=== PATIENT | male | born 1960 | race Caucasian/White ===

== ENCOUNTER 2018-08-25 08:48 | Emergency (ER) | payer BC ==
[2018-08-25 09:04] VITALS: BP 164/85; PULSE 74; TEMP 98.2; BMI 26.0
--- NOTE | 2018-08-25 09:50 | PDOC ---
History of Present Illness - General Chief Complaint: Pain Stated Complaint: LT LEG PAIN Time Seen by Provider: 08/25/18 09:33 History Source: Patient Exam Limitations: Clinical Condition - History of Present Illness Initial Comments: 08/25/18 09:53 Patient with no significant past medical history present with complaint of pain to left calf muscle for 2 days which has been worsening radiating down to left foot. Patient reports he gets this symptoms every time the weather is cold but not this severe. Patient also reported tingling sensation and left foot. Patient denies shortness of breath, chest pain, dizziness, problem with ambulation, redness to skin area. Patient denies any other symptoms Timing/Duration: other (2 days) Past History - Past Medical History Allergies/Adverse Reactions: Allergies Allergy/AdvReac Type Severity Reaction Status Date / Time No Known Allergies Allergy Verified 08/25/18 08:59 Home Medications: Ambulatory Orders Methocarbamol [Robaxin -] 500 mg PO BID #14 tablet 08/25/18 Naproxen 500 mg PO BID PRN #20 tablet 08/25/18 COPD: No HTN: Yes (untreated) - Surgical History Abdominal Surgery: Yes (hernia) - Suicide/Smoking/Psychosocial Hx Smoking History: Current every day smoker Have you smoked in the past 12 months: Yes Number of Cigarettes Smoked Daily: 5 Information on smoking cessation initiated: No Hx Alcohol Use: Yes (social) Drug/Substance Use Hx: No Substance Use Type: None Review of Systems - Review of Systems Able to Perform ROS?: Yes Is the patient limited [place] proficient: No Constitutional: No: See HPI, Fever, Weakness Respiratory: No: Symptoms reported, See HPI, Cough, Orthopnea, Shortness of Breath, SOB with Exertion, SOB at Rest, Stridor, Wheezing, Productive cough, Hemoptysis, Other Cardiac (ROS): No: Symptoms Reported, See HPI, Chest Pain, Edema, Irregular Heart Rate, Lightheadedness, Palpitations, Syncope, Chest Tightness, Other ABD/GI: No: Symptoms Reported, See HPI, Abdominal Distended, Abd. Pain w/ defecation, Blood Streaked Bowels, Constipated, Diarrhea, Difficulty Swallowing , Nausea, Poor Appetite, Poor Fluid Intake, Rectal Bleeding, Vomiting, Indigestion, Abdominal cramping, Tarry Stools, Other Musculoskeletal: Yes: Muscle Pain (left calf). No: Joint Pain, Joint Swelling, Muscle Weakness, Joint Stiffness Integumentary: No: Symptoms Reported, See HPI, Bruising, Change in Color, Change in Hair/Nails, Dryness, Erythema, Flushing, Lesions, Lumps, Pallor, Pruritus, Rash, Sweating, Other Neurological: Yes: Tingling (left foot). No: Numbness, Paresthesia, Weakness, Unsteady Gait All Other Systems: Reviewed and Negative *Physical Exam - Vital Signs Last Vital Signs Temp Pulse Resp BP Pulse Ox 98.2 F 74 18 164/85 99 08/25/18 08:59 08/25/18 08:59 08/25/18 08:59 08/25/18 08:59 08/25/18 08:59 - Physical Exam Comments: 08/25/18 09:55 GENERAL: Well developed, well nourished. Awake and alert. No acute distress. CARDIOVASCULAR: Regular rate and rhythm. No murmurs, rubs, or gallops. PULMONARY: No evidence of respiratory distress. Lungs clear to auscultation bilaterally. No wheezing, rales or rhonchi. ABDOMINAL: Soft. Non-tender. Non-distended. No rebound or guarding. No organomegaly. Normoactive bowel sounds MUSCULOSKELETAL : moderate tenderness over posterior left calf muscle. no increase warmth or redness to skin. negative horman's sign to left LE. No bony deformities EXTREMITIES: No cyanosis. No clubbing. No edema. moderate calf tenderness. SKIN: Warm and dry. Normal capillary refill. No rashes. No jaundice. NEUROLOGICAL: Alert, awake, appropriate. No motor deficits in the lower extremities. Gait is normal without ataxia. PSYCHIATRIC: Cooperative. Good eye contact. Appropriate mood and affect. General Appearance: Yes: Nourished, Appropriately Dressed. No: Apparent Distress Moderate Sedation - Procedure Monitoring Vital Signs: Procedure Monitoring Vital Signs Temperature 98.2 F 08/25/18 08:59 Pulse Rate 74 08/25/18 08:59 Respiratory Rate 18 08/25/18 08:59 Blood Pressure 164/85 08/25/18 08:59 O2 Sat by Pulse Oximetry (%) 99 08/25/18 08:59 ED Treatment Course - RADIOLOGY Radiology Studies Ordered: Category Date Time Status DUPLEX VASCUL US-1 LEG [US] Stat Ultrasound 08/25/18 09:47 Ordered Medical Decision Making - Medical Decision Making 08/25/18 09:57 Patient with no significant past medical history presenting with complaint of pain to left calf muscle to which has been worse in the past 2 days. Patient reports similar episodes in the past every time the weather is cold. Exam significant for moderate tenderness to posterior calf muscle. Duplex ultrasound of left lower extremity ordered. Symptoms likely muscle strain 08/25/18 11:24 duplex ultrasound of LLE shows no acute DVT or pathology. symptoms likely muscle cramps. patient stable for discharge on NSAIDS and muscle relaxer with PCP follow-up *DC/Admit/Observation/Transfer Diagnosis at time of Disposition: Pain of left calf Left hamstring muscle strain Qualifiers: Encounter type: initial encounter Qualified Code(s): S76.312A - Strain of muscle, fascia and tendon of the posterior muscle group at thigh level, left thigh, initial encounter - Discharge Dispostion Disposition: HOME Condition at time of disposition: Stable Decision to Admit order: No - Prescriptions Prescriptions: Methocarbamol [Robaxin -] 500 mg PO BID #14 tablet Naproxen 500 mg PO BID PRN #20 tablet PRN Reason: pain - Referrals - Patient Instructions Printed Discharge Instructions: DI for Calf Muscle Strain Additional Instructions: take medication as prescribed as needed for pain. come back to ER if worsening persistent pain . rest left leg.Follow-up with primary care as needed - Post Discharge Activity
== END 2018-08-25 11:32 | disposition home or self-care (01) ==
LOC: JERFT 08:48
DX: S86.112A Strain of other muscle(s) and tendon(s) of posterior muscle group at lower leg level, left leg, initial encounter (principal); S76.312A Strain of muscle, fascia and tendon of the posterior muscle group at thigh level, left thigh, initial encounter; X58.XXXA Exposure to other specified factors, initial encounter; Y93.89 Activity, other specified; Y92.89 Other specified places as the place of occurrence of the external cause; Y99.8 Other external cause status; I10 Essential (primary) hypertension
CPT/HCPCS: 93971-TC; 99281-25